=== PATIENT | male | born 1960 | race Caucasian/White ===

== ENCOUNTER 2020-03-29 09:09 | Outpatient (RCR) | payer MEDICAID ==
[~2020-03-29] VITALS: Ht 167 cm; Wt 50.0 kg
[~2020-03-29 09:09] MED LIST: AA/A14DR2 EACH EAR; AC325T PO; ALAVERT; ALB0.5V INH; ALBU0.8322 IH; ALVERT PO; ASP325T PO; ASPI-875 PO; ATOR10TA66 PO; BACL20TA PO; BUTA-273 PO; CEPH500C PO; CHLO500T2 PO; CLAR-19 PO; CYCL10TA9 PO; CYCL5TAB11 PO; DIPH25TA82 PO; DOXY100C2 PO; FISH OIL; FLUT16SP22 NSEACH; GABA100C PO; HYDR-4342 PO; LORA10TA44 PO; LORA10TA7 PO; LORA5TAB9 PO; MELO-195 PO; MELO15TA39 PO; METF-397 PO; MONT10TA26 PO; MTF500T PO; NAPR-243 PO; NAPR250T34 PO; OMEG1CAP51 PO; PRD20T PO; PRD50T PO; PROM25TA14 PO; RT-ALBUINH IH; SPIRIV; SPIRIVA; SULF1TAB38 PO; TIOT18CA IH; TIOT18CA2 IH
== END 2020-03-29 14:46 | disposition home or self-care (01) ==
LOC: PREOP 09:09
PROVIDERS: ATTEND Orthopaedic Surgery
DX: Z01.818 Encounter for other preprocedural examination (principal); Z11.59 Encounter for screening for other viral diseases; M70.22 Olecranon bursitis, left elbow
CPT/HCPCS: 87635

== ENCOUNTER 2020-04-03 10:10 | Day surgery (SDC) | payer MEDICAID, OTHER ==
--- NOTE | 2020-03-25 12:51 | HISTORY AND PHYSICAL ---
DATE OF SERVICE: ADMISSION HISTORY AND PHYSICAL DATE OF ADMISSION: 04/03/2020. This will be for surgery outpatient on 04/03/2020 for left elbow olecranon bursectomy and osteophyte excision. HISTORY OF PRESENT ILLNESS: The patient is a 59-year-old gentleman with complaints of left elbow pain and swelling. He has undergone aspiration of his olecranon bursa multiple times and it continues to recur. Despite conservative measures, the patient has elected to proceed with surgical excision. REVIEW OF SYSTEMS: No chest pain, no shortness of breath and no dysuria. PAST MEDICAL HISTORY: Asthma, COPD and diabetes type 2. PAST SURGICAL HISTORY: Cardiac catheterization, inguinal herniorrhaphy and left index finger. FAMILY HISTORY: Significant for cancer. PRIMARY CARE PROVIDER: Wolf ____. MEDICATIONS: Aspirin, baclofen, atorvastatin, Meloxicam, metformin, prednisone, ProAir, Spiriva and Symbicort. ALLERGIES: ONIONS and PENICILLIN. SOCIAL HISTORY: The patient smokes 2 packs per day. Denies alcohol use. RADIOGRAPHS: Reveal an olecranon osteophyte. PHYSICAL EXAMINATION: GENERAL: The patient is well developed, well-nourished and in no acute distress. HEENT: Normocephalic and atraumatic. Pupils are equal, round and reactive to light. Oropharynx is clear. NECK: Supple and no lymphadenopathy. LUNGS: Clear to auscultation bilaterally. HEART: Regular rate and rhythm. ABDOMEN: Soft, nontender and nondistended. EXTREMITIES: Left elbow demonstrates tenderness over his olecranon with associated swelling consistent with an olecranon bursitis. There is no erythema or warmth. This is mobile. He has symmetric elbow flexion, extension and pronation and supination of the forearm. IMPRESSION: Left olecranon bursitis unresponsive to conservative measures with associated osteophyte. PLAN: Left olecranon bursectomy with osteophyte excision. The risks, benefits, options, ramifications and recovery were discussed at length with the patient. He understands and wishes to proceed. Job ID: [id number] DocumentID: [id number] Dictated Date: 03/25/2020 10:39:34 Dextrine Mixer Date: 03/25/2020 12:51:02 Dictated By: HENRY LOPES MD
[2020-04-03] VITALS (10 sets, daily range): BP systolic 87–159; BP diastolic 57–83
[~2020-04-03] VITALS: Ht 167 cm; Wt 50.0 kg
[~2020-04-03 10:10] MED LIST changes: +HYDROcodone/APAP 7.5 MG/325 MG (LORTAB, LORCET PLUS) TABLET PO PRN
[2020-04-03] MEDS ORDERED: LACTATED RINGERS 1,000 ML IV PRN (10:20)
[2020-04-03] MEDS ORDERED: CLINDAMYCIN 600 MG/50 ML IVPB 50 ML IV ONE (10:30)
--- NOTE | 2020-04-03 11:11 | Progress Note-Pre Operative ---
Pre-Operative Progress Note H&P Reviewed The H&P was reviewed, patient examined and no changes noted. Date Seen by Provider: April 03, 2020 Time Seen by Provider: 11:11 Date H&P Reviewed: April 03, 2020 Time H&P Reviewed: 11:11 Pre-Operative Diagnosis: left olecranon bursitis HENRY LOPES MD April 03, 2020 11:11
--- NOTE | 2020-04-03 11:13 | Progress Note-Post Operative ---
Post-Operative Progess Note Surgeon (s)/Hand Stitcher (s) Surgeon HENRY LOPES MD Hand Stitcher: Tio Mcgill Pre-Operative Diagnosis left olecranon bursitis Post-Operative Diagnosis left olecranon bursitis Procedure & Operative Findings Date of Procedure 04/03/20 Procedure Performed/Findings left olecranon bursectomy and osteophyte excision Anesthesia Type GETA Estimated Blood Loss Estimated blood loss (mL): minimal Specimens/Packing Specimens Removed bursa Packing: none HENRY LOPES MD April 03, 2020 11:13
[2020-04-03] MEDS ORDERED: RT-ALBUTEROL SULF 2.5 MG/3 ML PRE-MIX VIAL INH ONE (11:15)
[2020-04-03] MEDS ORDERED: BUPIVACAINE 0.5% 30 ML (SENSORCAINE) VIAL ONE (11:18)
[2020-04-03] MEDS ORDERED: LIDOCAINE PF 2% 5 ML (XYLOCAINE) VIAL ONE (12:08)
[2020-04-03] MEDS ORDERED: proPOfol 200 MG/20 ML (DIPRIVAN) VIAL IV ONE (12:08)
[2020-04-03] MEDS ORDERED: ONDANSETRON 4 MG/2 ML (SDV) Z0FRAN ONE (12:08)
[2020-04-03] MEDS ORDERED: fentaNYL INJECTION 100 MCG/2 ML AMP ONE (12:09)
[2020-04-03] MEDS ORDERED: MIDAZOLAM 2 MG/2 ML (VERSED) VIAL ONE (12:09)
[2020-04-03] MEDS ORDERED: SEVOFLURANE (ULTANE) 15 ML INHAL SOLN ONE (13:31)
[2020-04-03] MEDS ORDERED: ONDANSETRON 4 MG/2 ML (SDV) Z0FRAN IVP PRN (14:00)
[2020-04-03] MEDS ORDERED: morphine INJ 10 MG/ML 1ML (SYR OR VIAL) IVP ONE (14:00)
[2020-04-03] MEDS ORDERED: MEPERIDINE (DEMEROL) INJ 50 MG/ML IVP ONE (14:00)
--- NOTE | 2020-04-03 14:06 | Anesthesia-General Post-Op ---
General Patient Condition Mental Status/LOC: Same as Preop Cardiovascular: Satisfactory Nausea/Vomiting: Absent Respiratory: Satisfactory Pain: Controlled Complications: Absent Post Op Complications Complications None Follow Up Care/Instructions Patient Instructions None needed. Anesthesia/Patient Condition Patient Condition Patient is doing well, no complaints, stable vital signs, no apparent adverse anesthesia problems. No complications reported per nursing. LOWELL CAMPOS CRNA April 03, 2020 14:06
[2020-04-03] MEDS ORDERED: HYDR-4342 PO (15:10)
--- NOTE | 2020-04-03 15:43 | NUR ---
HAS RESTED QUIETLY IN BED WITH NO COMPLAINTS OF PAIN THROUGHOUT RECOVERY PERIOD. CMS CHECKS WNL TO LEFT ARM/HAND. ELIA WRAPPED DRESSING REMAINS D/I TO LEFT ARM. HAS HAD LEFT ARM ELEVATED WITH ICE PACK ON. TAKING PO FLUIDS WELL, STATES HE IS READY FOR DISMISSAL.
--- NOTE | 2020-04-03 19:51 | OPERATIVE REPORT ---
DATE OF SERVICE: 04/03/2020 PREOPERATIVE DIAGNOSIS: Chronic left olecranon bursitis. POSTOPERATIVE DIAGNOSIS: Chronic left olecranon bursitis. PROCEDURE: 1. Left olecranon bursectomy. 2. Left olecranon osteophyte excision. SURGEON: Paulie Pimentel MD VACUUM SPINDLE SANDER: Tio Mcgill, who assisted throughout the procedure and closed the incision. ANESTHESIA: General endotracheal by Josafat Levin CRNA. TOURNIQUET TIME: 30 minutes at 250 mmHg. ESTIMATED BLOOD LOSS: Minimal. DRAINS: None. COMPLICATIONS: None. POSTOPERATIVE PLAN: Early range of motion. The patient was transferred to the recovery room awake and stable condition. STATEMENT OF MEDICAL NECESSITY: The patient is a 59-year-old gentleman with longstanding left posterior elbow pain and swelling. He had undergone aspiration multiple times, but the swelling recurred. Findings were consistent with olecranon bursitis and due to pain and failure to respond to conservative measures, the patient elected to proceed with surgical intervention. DESCRIPTION OF PROCEDURE: After risks and benefits of procedure were discussed and questions were answered and informed consent was signed and placed on chart, the operative site was confirmed in the preoperative holding area and initialed by the surgeon. The patient was then transferred to the operating room. After adequate levels of general endotracheal anesthetic were obtained, a timeout was called, confirming the operative site. Left upper extremity was prepped and draped in the usual sterile fashion with arm elevated, tourniquet inflated to 250 mmHg. A curvilinear incision was made over the mass and underlying soft tissues were carefully dissected after developing full thickness skin flaps. The bursa was identified and excised in total. No necrotic tissue was noted. The tourniquet was deflated for a total time of 13 minutes. Pressure was used for hemostasis as well as cautery. The wound was copiously irrigated, 3-0 Vicryl was used to reapproximate subcutaneous tissue and skin was closed with 4-0 nylon in vertical mattress interrupted fashion. A soft dressing was applied and the patient was transferred to the recovery room awake and in stable condition. Job ID: [id number] DocumentID: [id number] Dictated Date: 04/03/2020 13:31:17 Nursing Home Assistant Administrator Date: 04/03/2020 19:50:01 Dictated By: PAULIE PIMENTEL MD
== END 2020-04-03 15:43 | disposition home or self-care (01) ==
LOC: SDC 10:10
PROVIDERS: ATTEND Orthopaedic Surgery
DX: M70.22 Olecranon bursitis, left elbow (principal); M25.722 Osteophyte, left elbow; J44.9 Chronic obstructive pulmonary disease, unspecified; E11.9 Type 2 diabetes mellitus without complications; F17.210 Nicotine dependence, cigarettes, uncomplicated; Z79.82 Long term (current) use of aspirin; Z79.84 Long term (current) use of oral hypoglycemic drugs; Z79.899 Other long term (current) drug therapy; Z88.0 Allergy status to penicillin; Z91.018 Allergy to other foods; Z80.9 Family history of malignant neoplasm, unspecified
CPT/HCPCS: 82962; 87081; 94640

== ENCOUNTER → 2020-08-17 | Emergency (ER) | payer MEDICAID ==
[~2020-08-17] VITALS: Ht 170 cm; Wt 50.9 kg
[~2020-08-17] MED LIST changes: +FAMOTIDINE 20MG/2ML IV (PEPCID) IV STA; +HYDR-3817 PO; -HYDR-4342 PO; -HYDROcodone/APAP 7.5 MG/325 MG (LORTAB, LORCET PLUS) TABLET PO PRN; +LACTATED RINGERS 1,000 ML IV STA; +ONDANSETRON 4 MG/2 ML (SDV) Z0FRAN IVP ONE
--- NOTE | 2020-08-17 15:59 | ED General ---
General Stated Complaint: N/V Source of Information: Patient, EMS History of Present Illness Date Seen by Provider: Aug 17, 2020 Time Seen by Provider: 15:59 Initial Comments 60-year-old male brought in following a syncope event. Patient reports he ate a couple bags an old donuts. He then went to the restroom vomited multiple times. Then he walked out and had a brief syncope event. Patient denies any chest pain. He does have some mild epigastric pain. Denies any fevers chills. Allergies and Home Medications Allergies Coded Allergies: Penicillins (Verified Allergy, Severe, ANAPHYLAXIS, 03/28/20) Uncoded Allergies: onions (Allergy, Intermediate, swelling, 01/28/14) Home Medications Albuterol Sulfate 1 Puff Puff, 2 PUFF IH Q4H, (Reported) 1 PUFF = 90 MCG Atorvastatin Calcium 10 Mg Tablet, 10 MG PO HS, (Reported) Baclofen 20 Mg Tablet, 20 MG PO DAILY, (Reported) Butalbital/Aspirin/Caffeine 1 Each Tablet, 1 EACH PO QID PRN for HEADACHES, (Reported) Hydrocodone/Acetaminophen 1 Each Tablet, 1 EACH PO Q4H Prescribed by: ADRIANA HOLLOWAY on 04/03/20 1510 Loratadine 10 Mg Tablet, 10 MG PO DAILY, (Reported) Meloxicam 15 Mg Tablet, 15 MG PO DAILY, (Reported) Metformin HCl 500 Mg Tablet, 500 MG PO BID, (Reported) Montelukast Sodium 10 Mg Tablet, 10 MG PO DAILY, (Reported) Tiotropium [place] 1 Inh Aerp, 1 INH IH BID, (Reported) Patient Home Medication List Home Medication List Reviewed: Yes Review of Systems Review of Systems Constitutional: No chills, No fever EENTM: no symptoms reported Respiratory: cough (chronic with COPD); No orthopnea, No short of breath Cardiovascular: No chest pain, No palpitations Gastrointestinal: abdominal pain (epigastric); No diarrhea; nausea, vomiting Genitourinary: no symptoms reported Musculoskeletal: no symptoms reported Skin: no symptoms reported Psychiatric/Neurological: See HPI Past Rmiyqam-Origug-Vthcoc Hx Past Med/Social Hx: Reviewed Nursing Past Med/Soc Hx Patient Social History Type Used: Cigarettes 2nd Hand Smoke Exposure: Yes Recent Hopitalizations: No Immunizations Up To Date Tetanus Booster (TDap): Less than 5yrs Date of Pneumonia Vaccine: Aug 19, 2011 Date of Influenza Vaccine: Sep 19, 2013 Seasonal Allergies Seasonal Allergies: No Past Medical History Surgeries: Yes (HERNIA, 1ST FINGER L HAND AMPUTATION) Amputation Respiratory: Yes Asthma, Emphysema Currently Using CPAP: No Currently Using BIPAP: No Cardiac: Yes High Cholesterol Neurological: Yes (2000-STROKE) Headaches /Migraines, Stroke Reproductive Disorders: No Sexually Transmitted Disease: No HIV/AIDS: No Genitourinary: No Gastrointestinal: No Musculoskeletal: Yes (LEFT ELBOW BURSITIS/SWELLING) Arthritis, Fractures Endocrine: Yes Diabetes, Non-Insulin dep HEENT: No Loss of Vision: Denies Hearing Impairment: Denies Cancer: No Psychosocial: No Integumentary: No Blood Disorders: No Adverse Reaction/Blood Tranf: No (N/A) Family Medical History Alcoholism 09 BROTHER Cancer 03 MOTHER (BRAIN) 09 SISTER (BREAST CA) Family history: Alzheimer's disease 03 MOTHER Family history: Arthritis 09 BROTHER Family history: Hypertension 03 FATHER History of - respiratory disease 03 FATHER Human immunodeficiency virus (HIV) seropositivity 09 SISTER (AIDS) Psychotic disorder 09 BROTHER (BIPOLAR) No Family History of: Abdominal aortic aneurysm Big Stone's disease Aphasia Cancer of colon Cataract Chest pain Congenital heart disease Congestive heart failure Cystic fibrosis Dementia Dysphagia Family history: Allergy Family history: Asthma Family history: Breast disease Family history: Cardiovascular disease Family history: Coronary thrombosis Family history: Diabetes mellitus Family history: Gastrointestinal disease Family history: Glaucoma Family history: Osteoporosis Family history: Thyroid disorder Headache Hearing loss Heart disease Hereditary disease History of - anemia History of - disorder History of drug abuse Hypercholesterolemia Infertile Kidney disease Malignant neoplasm of lung Myocardial infarction Parkinson's disease Prostate cancer Seizure disorder Stroke Tuberculosis Visual impairment Physical Exam Vital Signs Vital Signs - First Documented 08/17/20 16:15 Temp 36.5 Pulse 85 Resp 24 B/P (MAP) 126/78 (94) Pulse Ox 96 O2 Delivery Room Air Capillary Refill : Height, Weight, BMI Height: 5'7.00" Weight: 128lbs. 2.0oz. 58.040577ko; 17.92 BMI Method:Stated General Appearance: No Apparent Distress, Thin Eyes: Bilateral Eye PERRL, Bilateral Eye EOMI Neck: Non Tender, Supple Respiratory: No Accessory Muscle Use, No Respiratory Distress, Decreased Breath Sounds (minimal diffuse) Cardiovascular: Regular Rate, Rhythm, No Edema Gastrointestinal: Non Tender, Soft Back: No CVA Tenderness, No Vertebral Tenderness Extremity: Normal Capillary Refill, Normal Range of Motion Neurologic/Psychiatric: Oriented x3, No Motor/Sensory Deficits, Normal Mood/Affect, bond manager II-XII Norm as Tested Focused Exam Lactate Level 08/17/20 15:59: Lactic Acid Level 0.94 Lactic Acid Level Laboratory Tests Test 08/17/20 15:59 Lactic Acid Level 0.94 MMOL/L (0.50-2.00) Progress/Results/Core Measures Suspected Sepsis SIRS Temperature: Pulse: Respiratory Rate: Laboratory Tests 08/17/20 15:59: White Blood Count 10.4 Blood Pressure / Mean: 08/17/20 15:59: Lactic Acid Level 0.94 Laboratory Tests 08/17/20 15:59: Creatinine 0.83, Platelet Count 299, Total Bilirubin 0.6 Results/Orders Lab Results Laboratory Tests Test 08/17/20 15:59 08/17/20 16:22 08/17/20 16:38 Range/Units White Blood Count 10.4 4.3-11.0 10^3/uL Red Blood Count 4.07 L 4.30-5.52 10^6/uL Hemoglobin 12.9 L 13.3-17.7 g/dL Hematocrit 38 L 40-54 % Mean Corpuscular Volume 93 80-99 fL Mean Corpuscular Hemoglobin 32 25-34 pg Mean Corpuscular Hemoglobin Concent 34 32-36 g/dL Red Cell Distribution Width 13.3 10.0-14.5 % Platelet Count 299 130-400 10^3/uL Mean Platelet Volume 9.7 9.0-12.2 fL Immature Granulocyte % (Auto) 0 % Neutrophils (%) (Auto) 86 H 42-75 % Lymphocytes (%) (Auto) 10 L 12-44 % Monocytes (%) (Auto) 3 0-12 % Eosinophils (%) (Auto) 0 0-10 % Basophils (%) (Auto) 1 0-10 % Neutrophils # (Auto) 8.9 H 1.8-7.8 10^3/uL Lymphocytes # (Auto) 1.1 1.0-4.0 10^3/uL Monocytes # (Auto) 0.3 0.0-1.0 10^3/uL Eosinophils # (Auto) 0.0 0.0-0.3 10^3/uL Basophils # (Auto) 0.1 0.0-0.1 10^3/uL Immature Granulocyte # (Auto) 0.0 0.0-0.1 10^3/uL Sodium Level 134 L 135-145 MMOL/L Potassium Level 4.4 3.6-5.0 MMOL/L Chloride Level 100 98-107 MMOL/L Carbon Dioxide Level 22 21-32 MMOL/L Anion Gap 12 5-14 MMOL/L Blood Urea Nitrogen 12 7-18 MG/DL Creatinine 0.83 0.60-1.30 MG/DL Estimat Glomerular Filtration Rate > 60 BUN/Creatinine Ratio 14 Glucose Level 167 H 70-105 MG/DL Lactic Acid Level 0.94 0.50-2.00 MMOL/L Calcium Level 8.4 L 8.5-10.1 MG/DL Corrected Calcium 8.6 8.5-10.1 MG/DL Total Bilirubin 0.6 0.1-1.0 MG/DL Aspartate Amino Transf (AST/SGOT) 16 5-34 U/L Alanine Aminotransferase (ALT/SGPT) 15 0-55 U/L Alkaline Phosphatase 53 40-136 U/L Troponin I < 0.028 <0.028 NG/ML B-Type Natriuretic Peptide 30.4 <100.0 PG/ML Total Protein 6.5 6.4-8.2 GM/DL Albumin 3.8 3.2-4.5 GM/DL Lipase 19 8-78 U/L Urine Color YELLOW Urine Clarity CLEAR Urine pH 7.0 5-9 Urine Specific [place] 1.015 L 1.016-1.022 Urine Protein NEGATIVE NEGATIVE Urine Glucose (UA) TRACE H NEGATIVE Urine Ketones 1+ H NEGATIVE Urine Nitrite NEGATIVE NEGATIVE Urine Bilirubin NEGATIVE NEGATIVE Urine Urobilinogen 0.2 < = 1.0 MG/DL Urine Leukocyte Esterase NEGATIVE NEGATIVE Urine RBC (Auto) NEGATIVE NEGATIVE Urine RBC NONE /HPF Urine WBC 5-10 H /HPF Urine Squamous Epithelial Cells 5-10 /HPF Urine Crystals NONE /LPF Urine Bacteria TRACE /HPF Urine Casts PRESENT /LPF Urine Hyaline Casts 0-2 H /LPF Urine Mucus NEGATIVE /LPF Urine Culture Indicated YES Glucometer 144 H 70-110 MG/DL My Orders Orders - GONZALEZ,CHIKI L DO Acute Abd Series (08/17/20 16:00) Accucheck Stat ONCE (08/17/20 16:00) Ed Iv/Invasive Line Start (08/17/20 16:00) Ekg Tracing (08/17/20 16:00) Monitor-Rhythm Ecg Trace Only (08/17/20 16:00) Ondansetron Injection (Zofran Injectio (08/17/20 16:00) Lactated Ringers (Lr 1000 Ml Iv Solution (08/17/20 16:00) Famotidine Injection (Pepcid Injection) (08/17/20 16:00) BNP (08/17/20 16:00) Cbc With Automated Diff (08/17/20 16:00) Comprehensive Metabolic Panel (08/17/20 16:00) Lactic Acid Analyzer (08/17/20 16:00) Lipase (08/17/20 16:00) Troponin I (08/17/20 16:00) Ua Culture If Indicated (08/17/20 16:00) Urine Culture (08/17/20 16:22) Medications Given in ED Current Medications Medications Dose Ordered Sig/Micheal Route Start Time Stop Time Status Last Admin Dose Admin Ondansetron HCl 4 mg ONCE ONCE IVP 08/17/20 16:00 08/17/20 16:02 DC 08/17/20 16:40 4 MG Vital Signs/I&O 08/17/20 16:15 Temp 36.5 Pulse 85 Resp 24 B/P (MAP) 126/78 (94) Pulse Ox 96 O2 Delivery Room Air Capillary Refill : Progress Note : Time: 17:03 Progress Note Patient reports he's feeling better after some fluids. He wants to go home. He wants no further evaluation is does not want to wait for any further results. Patient does appear to be much better. Patient is stable and will be discharged as he requests ECG Initial ECG Impression Date: Aug 17, 2020 Initial ECG Impression Time: 16:06 Initial ECG Rate: 83 Initial ECG Rhythm: Normal Sinus Initial ECG Impression: Nonspecific Changes Comment No acute findings Departure Impression Primary Impression: Vasovagal syncope Additional Impressions: Nausea & vomiting Qualified Codes: R11.2 - Nausea with vomiting, unspecified Food poisoning Disposition: 01 HOME, SELF-CARE Condition: Stable Departure-Patient Inst. Referrals: MARISOL BURRIS MD (PCP) Primary Care Physician JEFFERSON HAWK (Family) Primary Care Physician Patient Instructions: Food Poisoning, Nausea and Vomiting, Adult (DC), Vasovagal Response Add. Discharge Instructions: Follow-up with your primary care provider in the next 2-3 days for recheck of today's complaints CHIKI GONZALEZ DO Aug 17, 2020 15:59
[2020-08-17 16:14] LABS: BASOPHILS # (AUTO) 0.1 10^3/uL (0.0-0.1); BASOPHILS % (AUTO) 1 % (0-10); EOSINOPHILS % (AUTO) 0 % (0-10); HEMATOCRIT 38 % (40-54); HEMOGLOBIN 12.9 g/dL (13.3-17.7); LYMPHOCYTES # (AUTO) 1.1 10^3/uL (1.0-4.0); LYMPHOCYTES % (AUTO) 10 % (12-44); MEAN CORPUSCULAR HEMOGLOBIN 32 pg (25-34); MEAN CORPUSCULAR HGB CONC 34 g/dL (32-36); MEAN CORPUSCULAR VOLUME 93 fL (80-99); MEAN PLATELET VOLUME 9.7 fL (9.0-12.2); MONOCYTES # (AUTO) 0.3 10^3/uL (0.0-1.0); MONOCYTES % (AUTO) 3 % (0-12); NEUTROPHILS # (AUTO) 8.9 10^3/uL (1.8-7.8); NEUTROPHILS % (AUTO) 86 % (42-75); PLATELET COUNT 299 10^3/uL (130-400); WHITE BLOOD COUNT 10.4 10^3/uL (4.3-11.0)
[2020-08-17 16:21] LABS: ALBUMIN 3.8 GM/DL (3.2-4.5); CHLORIDE 100 MMOL/L (98-107); POTASSIUM 4.4 MMOL/L (3.6-5.0); SODIUM 134 MMOL/L (135-145)
[2020-08-17 16:22] LABS: CALCIUM 8.4 MG/DL (8.5-10.1)
[2020-08-17 16:23] LABS: GLUCOSE 167 MG/DL (70-105)
[2020-08-17 16:24] LABS: TOTAL PROTEIN 6.5 GM/DL (6.4-8.2)
[2020-08-17 16:25] LABS: BILIRUBIN,TOTAL 0.6 MG/DL (0.1-1.0); CARBON DIOXIDE 22 MMOL/L (21-32)
[2020-08-17 16:27] LABS: ALKALINE PHOSPHATASE 53 U/L (40-136); CREATININE SERUM 0.83 MG/DL (0.60-1.30); GFR ESTIMATED > 60
[2020-08-17 16:28] LABS: BUN/CREATININE RATIO 14
[2020-08-17 16:30] LABS: BILIRUBIN,URINE NEGATIVE (NEGATIVE); CLARITY,URINE CLEAR; COLOR,URINE YELLOW; GLUCOSE, URINE (UA) TRACE (NEGATIVE); KETONES,URINE 1+ (NEGATIVE); LEUKOCYTE ESTERASE ,URINE NEGATIVE (NEGATIVE); NITRITE,URINE NEGATIVE (NEGATIVE); PROTEIN,URINE NEGATIVE (NEGATIVE)
[2020-08-17 16:30] LABS: ALANINE AMINOTRANSFERASE 15 U/L (0-55); LIPASE 19 U/L (8-78)
[2020-08-17 16:52] LABS: BACTERIA,URINE TRACE /HPF
[2020-08-17 16:53] LABS: HYALINE CASTS, URINE 0-2 /LPF
[2020-08-17 17:16] VITALS: BP 143/81
== END ==
LOC: EDUNIT# 15:55 → ER 15:57
DX: R55 Syncope and collapse (principal); R11.2 Nausea with vomiting, unspecified; A05.9 Bacterial foodborne intoxication, unspecified; E11.9 Type 2 diabetes mellitus without complications; J45.909 Unspecified asthma, uncomplicated; E78.00 Pure hypercholesterolemia, unspecified; Z88.0 Allergy status to penicillin; Z77.22 Contact with and (suspected) exposure to environmental tobacco smoke (acute) (chronic); Z82.61 Family history of arthritis; Z82.49 Family history of ischemic heart disease and other diseases of the circulatory system; Z80.3 Family history of malignant neoplasm of breast; Z80.8 Family history of malignant neoplasm of other organs or systems; Z79.84 Long term (current) use of oral hypoglycemic drugs
CPT/HCPCS: 36415; 80053; 81000; 82962; 83605; 83690; 83880; 84484; 85025; 87088; 93041

== ENCOUNTER → 2020-10-22 | Outpatient (CLI) | payer MEDICAID ==
[~2020-10-22] MED LIST changes: -FAMOTIDINE 20MG/2ML IV (PEPCID) IV STA; -LACTATED RINGERS 1,000 ML IV STA; -MONT10TA26 PO; +MONT10TA97 PO; -ONDANSETRON 4 MG/2 ML (SDV) Z0FRAN IVP ONE; +RT-ALBUTEROL SULF 2.5 MG/3 ML PRE-MIX VIAL INH ONE
--- NOTE | 2020-10-22 12:51 | Diagnostic Imaging Report ---
CT Lung Screening INDICATION:56 pack-year smoking history TECHNIQUE: Noncontrast, low-dose CT imaging performed according to the lung cancer screening protocol. Auto Exposure Controls were utilize during the CT exam to meet ALARA standards for radiation dose reduction. COMPARISON:None FINDINGS:There are no prior CT studies for comparison. The plain film examination of the chest performed on 01/28/2014 failed to show any sign of an acute cardiopulmonary abnormality. On this exam there are 2 contiguous calcified small granulomas in the right upper lung. These have a generally benign appearance. There is no other parenchymal lung mass to suggest malignancy. There are mild emphysematous changes involving both lungs and there is scar formation of each formation apex. There is no sign of failure, pneumonia or pleural effusion to indicate an acute abnormality. The heart size is within normal limits. Coronary artery calcifications are noted. The aorta is not abnormally dilated. There is no obvious mediastinal or hilar adenopathy. The thyroid gland is partially obscured by streak artifact. The images through the upper abdomen failed to show any sign of an acute abnormality. The bone windows are unremarkable for a fracture or for destructive lesion. IMPRESSION: 1. There is no parenchymal lung mass to suggest malignancy. A followup low-dose lung cancer screening exam in one year would be recommended for continued evaluation. 2. There are emphysematous changes involving both lungs but there is no sign of an acute cardiopulmonary abnormality. 3. The heart size is within normal limits. Coronary calcifications are evident. LUNG-RADS CATEGORY:1 MODIFIER: OTHER SIGNIFICANT FINDINGS: Dictated by: Dictated on workstation # [id number]
== END ==
LOC: RT 10:30
PROVIDERS: ATTEND Nurse Practitioner Family
DX: J43.9 Emphysema, unspecified (principal); F17.200 Nicotine dependence, unspecified, uncomplicated
CPT/HCPCS: 94060; 94726; 94729

== ENCOUNTER 2021-02-10 12:47 | Outpatient (CLI) | payer MEDICAID ==
[~2021-02-10 12:47] MED LIST changes: +MONT10TA32 PO; -MONT10TA97 PO; -RT-ALBUTEROL SULF 2.5 MG/3 ML PRE-MIX VIAL INH ONE
== END 2021-02-10 13:30 | disposition home or self-care (01) ==
LOC: SLEEP 12:47
PROVIDERS: ATTEND Nurse Practitioner Family
DX: G47.10 Hypersomnia, unspecified (principal)
CPT/HCPCS: G0399

== ENCOUNTER → 2021-02-14 | Outpatient (CLI) | payer MEDICAID ==
[~2021-02-14] MED LIST changes: +GADOBUTROL 7.5 MMOL/7.5 ML (GADAVIST) VIAL IV ONE
== END ==
LOC: RAD 08:45
PROVIDERS: ATTEND Nurse Practitioner Family
DX: R41.82 Altered mental status, unspecified (principal); Z53.8 Procedure and treatment not carried out for other reasons

== ENCOUNTER → 2021-03-18 | Outpatient (CLI) | payer MEDICAID ==
[~2021-03-18] MED LIST changes: +CATHETER FLUSH 10 ML SYR IV PRN; -GADOBUTROL 7.5 MMOL/7.5 ML (GADAVIST) VIAL IV ONE; +HOLD METFORMIN - RECEIVED CONTRAST 20 ML VIAL IV SCH; +IOHEXOL 350 MG/ML 100 ML (OMNIPAQUE 350) VIAL IV ONE; +NS 100 ML (IVPB) BAG IV ONE
[2021-03-18 10:14] LABS: ALBUMIN 3.9 GM/DL (3.2-4.5)
[2021-03-18 10:15] LABS: CHLORIDE 100 MMOL/L (98-107); POTASSIUM 4.7 MMOL/L (3.6-5.0); SODIUM 136 MMOL/L (135-145)
[2021-03-18 10:16] LABS: CALCIUM 9.1 MG/DL (8.5-10.1)
[2021-03-18 10:17] LABS: GLUCOSE 128 MG/DL (70-105); TOTAL PROTEIN 7.2 GM/DL (6.4-8.2)
[2021-03-18 10:18] LABS: CARBON DIOXIDE 24 MMOL/L (21-32)
[2021-03-18 10:19] LABS: BILIRUBIN,TOTAL 0.6 MG/DL (0.1-1.0)
[2021-03-18 10:20] LABS: ALKALINE PHOSPHATASE 66 U/L (40-136)
[2021-03-18 10:21] LABS: CREATININE SERUM 0.89 MG/DL (0.60-1.30); GFR ESTIMATED > 60
[2021-03-18 10:22] LABS: BUN/CREATININE RATIO 12
[2021-03-18 10:23] LABS: ALANINE AMINOTRANSFERASE 14 U/L (0-55)
--- NOTE | 2021-03-18 11:23 | Diagnostic Imaging Report ---
PROCEDURE: CT head with and without contrast. TECHNIQUE: Multiple contiguous axial images were obtained through the brain before and after the administration of intravenous contrast. Auto Exposure Controls were utilized during the CT exam to meet ALARA standards for radiation dose reduction. INDICATION: Altered mental status. COMPARISON: MRI brain on 01/09/2014. FINDINGS: No large acute territorial ischemia, mass, or hemorrhage. No abnormal enhancement. No midline shift or mass effect. The ventricles, cortical sulci, and basilar cisterns are patent and unremarkable. The calvarium is intact. The visualized paranasal sinuses are clear. IMPRESSION: 1. No large acute territorial ischemia, mass, or hemorrhage. No abnormal enhancement. Dictated by: Dictated on workstation # [id number]
== END ==
LOC: RAD 09:54
PROVIDERS: ATTEND Nurse Practitioner Family
DX: R41.82 Altered mental status, unspecified (principal)
CPT/HCPCS: 36415; 70470; 80053

== ENCOUNTER 2021-05-26 21:14 | Emergency (ER) | payer MEDICAID ==
[~2021-05-26] VITALS: Ht 170 cm; Wt 50.9 kg
[~2021-05-26 21:14] MED LIST changes: -CATHETER FLUSH 10 ML SYR IV PRN; -HOLD METFORMIN - RECEIVED CONTRAST 20 ML VIAL IV SCH; -IOHEXOL 350 MG/ML 100 ML (OMNIPAQUE 350) VIAL IV ONE; -NS 100 ML (IVPB) BAG IV ONE
[2021-05-26 22:03] LABS: BASOPHILS % (AUTO) 0 % (0-10); EOSINOPHILS % (AUTO) 0 % (0-10); HEMATOCRIT 40 % (40-54); HEMOGLOBIN 13.7 g/dL (13.3-17.7); LYMPHOCYTES # (AUTO) 1.5 10^3/uL (1.0-4.0); LYMPHOCYTES % (AUTO) 12 % (12-44); MEAN CORPUSCULAR HEMOGLOBIN 31 pg (25-34); MEAN CORPUSCULAR HGB CONC 34 g/dL (32-36); MEAN CORPUSCULAR VOLUME 91 fL (80-99); MEAN PLATELET VOLUME 9.9 fL (9.0-12.2); MONOCYTES # (AUTO) 1.1 10^3/uL (0.0-1.0); MONOCYTES % (AUTO) 9 % (0-12); NEUTROPHILS # (AUTO) 9.5 10^3/uL (1.8-7.8); NEUTROPHILS % (AUTO) 78 % (42-75); PLATELET COUNT 215 10^3/uL (130-400); WHITE BLOOD COUNT 12.2 10^3/uL (4.3-11.0)
[2021-05-26 22:10] LABS: ALBUMIN 3.8 GM/DL (3.2-4.5); CHLORIDE 96 MMOL/L (98-107); POTASSIUM 4.2 MMOL/L (3.6-5.0); SODIUM 131 MMOL/L (135-145)
[2021-05-26 22:11] LABS: CALCIUM 8.7 MG/DL (8.5-10.1)
[2021-05-26 22:12] LABS: GLUCOSE 163 MG/DL (70-105)
[2021-05-26 22:13] LABS: TOTAL PROTEIN 7.1 GM/DL (6.4-8.2)
[2021-05-26 22:14] LABS: BILIRUBIN,TOTAL 0.5 MG/DL (0.1-1.0); CARBON DIOXIDE 24 MMOL/L (21-32)
[2021-05-26 22:16] LABS: ALKALINE PHOSPHATASE 60 U/L (40-136); CREATININE SERUM 0.95 MG/DL (0.60-1.30); GFR ESTIMATED > 60
[2021-05-26 22:17] LABS: BUN/CREATININE RATIO 12
[2021-05-26 22:19] LABS: ALANINE AMINOTRANSFERASE 15 U/L (0-55)
[2021-05-26] MEDS ORDERED: methylPREDNISolone 125 MG (Solu-MEDROL) VIAL IVP ONE (22:30)
[2021-05-26] MEDS ORDERED: RT-ALBUTEROL/IPRATROPIUM 3 ML (DUONEB) VIAL INH ONE (22:30)
[2021-05-26] MEDS ORDERED: AZITHROMYCIN INJECTION 500 MG in NS (IVPB) 250 ML IV ONE (23:45)
[2021-05-26] MEDS ORDERED: AZIT250T12 PO (23:56)
[2021-05-26] MEDS ORDERED: PRD20T PO (23:56)
--- NOTE | 2021-05-26 23:56 | ED General ---
General Chief Complaint: Respiratory Problems Stated Complaint: SOB Nursing Triage Note: PT PRESENTS TO THE ED C/O SOB THAT HAS BEEN GRADUALLY INCREASING OVER THE LAST FIVE DAYS. DENIES CP. VERBALIZES COUGH AND COPD HX. STATES HE HAS BEEN USING HIS INHALER PRESCRIBED. Source of Information: Patient Exam Limitations: No Limitations History of Present Illness Date Seen by Provider: May 26, 2021 Time Seen by Provider: 21:43 Initial Comments This 61-year-old gentleman with COPD presents to the emergency room with complaints of worsening shortness of breath and cough over the past few days. He does use inhalers and nebulizers at home but has continued to have worsening symptoms. He denies fever. He is a smoker. He has had episodes of hypoxia in the ER and does not use oxygen at home. He has no known Covid exposures. He has not been vaccinated. Allergies and Home Medications Allergies Coded Allergies: Penicillins (Verified Allergy, Severe, ANAPHYLAXIS, 03/28/20) Uncoded Allergies: onions (Allergy, Intermediate, swelling, 01/28/14) Home Medications Albuterol Sulfate 1 Puff Puff, 2 PUFF IH Q4H, (Reported) 1 PUFF = 90 MCG Atorvastatin Calcium 10 Mg Tablet, 10 MG PO HS, (Reported) Azithromycin 250 Mg Tablet, 250 MG PO DAILY Prescribed by: ROBBIE MCCANN on 05/26/212355 Baclofen 20 Mg Tablet, 20 MG PO DAILY, (Reported) Butalbital/Aspirin/Caffeine 1 Each Tablet, 1 EACH PO QID PRN for HEADACHES, (Reported) Hydrocodone/Acetaminophen 1 Each Tablet, 1 EACH PO Q4H Prescribed by: ADRIANA HOLLOWAY on 04/03/20 1510 Loratadine 10 Mg Tablet, 10 MG PO DAILY, (Reported) Meloxicam 15 Mg Tablet, 15 MG PO DAILY, (Reported) Metformin HCl 500 Mg Tablet, 500 MG PO BID, (Reported) Montelukast Sodium 10 Mg Tablet, 10 MG PO DAILY, (Reported) Prednisone 20 Mg Tab, 40 MG PO DAILY Prescribed by: ROBBIE MCCANN on 05/26/212355 Tiotropium [place] 1 Inh Aerp, 1 INH IH BID, (Reported) Patient Home Medication List Home Medication List Reviewed: Yes Review of Systems Review of Systems Constitutional: no symptoms reported EENTM: no symptoms reported Respiratory: see HPI Cardiovascular: no symptoms reported Gastrointestinal: no symptoms reported Genitourinary: no symptoms reported Musculoskeletal: no symptoms reported Skin: no symptoms reported Psychiatric/Neurological: No Symptoms Reported Hematologic/Lymphatic: No Symptoms Reported Past Mqcpjwj-Ahvapt-Totahl Hx Patient Social History Tobacco Use?: Yes Immunizations Up To Date Tetanus Booster (TDap): Less than 5yrs Seasonal Allergies Seasonal Allergies: No Past Medical History Surgeries: Yes (HERNIA, 1ST FINGER L HAND AMPUTATION) Amputation Respiratory: Yes Asthma, COPD, Emphysema Currently Using CPAP: No Currently Using BIPAP: No Cardiac: Yes High Cholesterol Neurological: Yes (2000-STROKE) Headaches /Migraines, Stroke Reproductive Disorders: No Sexually Transmitted Disease: No HIV/AIDS: No Genitourinary: No Gastrointestinal: No Musculoskeletal: Yes (LEFT ELBOW BURSITIS/SWELLING) Arthritis, Fractures Endocrine: Yes Diabetes, Non-Insulin dep HEENT: No Loss of Vision: Denies Hearing Impairment: Denies Cancer: No Psychosocial: No Integumentary: No Blood Disorders: No Adverse Reaction/Blood Tranf: No (N/A) Family Medical History Alcoholism 09 BROTHER Cancer 03 MOTHER (BRAIN) 09 SISTER (BREAST CA) Family history: Alzheimer's disease 03 MOTHER Family history: Arthritis 09 BROTHER Family history: Hypertension 03 FATHER History of - respiratory disease 03 FATHER Human immunodeficiency virus (HIV) seropositivity 09 SISTER (AIDS) Psychotic disorder 09 BROTHER (BIPOLAR) No Family History of: Abdominal aortic aneurysm Ocilla's disease Aphasia Cancer of colon Cataract Chest pain Congenital heart disease Congestive heart failure Cystic fibrosis Dementia Dysphagia Family history: Allergy Family history: Asthma Family history: Breast disease Family history: Cardiovascular disease Family history: Coronary thrombosis Family history: Diabetes mellitus Family history: Gastrointestinal disease Family history: Glaucoma Family history: Osteoporosis Family history: Thyroid disorder Headache Hearing loss Heart disease Hereditary disease History of - anemia History of - disorder History of drug abuse Hypercholesterolemia Infertile Kidney disease Malignant neoplasm of lung Myocardial infarction Parkinson's disease Prostate cancer Seizure disorder Stroke Tuberculosis Visual impairment Physical Exam Vital Signs Vital Signs - First Documented 05/26/21 21:32 Temp 37.7 Pulse 110 Resp 24 B/P (MAP) 137/83 (101) Pulse Ox 95 O2 Delivery Nasal Cannula O2 Flow Rate 3.00 Capillary Refill : Less Than 3 Seconds Height, Weight, BMI Height: 5'7.00" Weight: 128lbs. 2.0oz. 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 Norm as Tested Skin: Normal Color, Warm/Dry Progress/Results/Core Measures Suspected Sepsis SIRS Temperature: Pulse: 110 Respiratory Rate: 24 Laboratory Tests 05/26/21 21:45: White Blood Count 12.2H Blood Pressure 137 /83 Mean: 101 Laboratory Tests 05/26/21 21:45: Creatinine 0.95, Platelet Count 215, Total Bilirubin 0.5 Results/Orders Lab Results Laboratory Tests Test 05/26/21 21:45 Range/Units White Blood Count 12.2 H 4.3-11.0 10^3/uL Red Blood Count 4.38 4.30-5.52 10^6/uL Hemoglobin 13.7 13.3-17.7 g/dL Hematocrit 40 40-54 % Mean Corpuscular Volume 91 80-99 fL Mean Corpuscular Hemoglobin 31 25-34 pg Mean Corpuscular Hemoglobin Concent 34 32-36 g/dL Red Cell Distribution Width 13.2 10.0-14.5 % Platelet Count 215 130-400 10^3/uL Mean Platelet Volume 9.9 9.0-12.2 fL Immature Granulocyte % (Auto) 0 % Neutrophils (%) (Auto) 78 H 42-75 % Lymphocytes (%) (Auto) 12 12-44 % Monocytes (%) (Auto) 9 0-12 % Eosinophils (%) (Auto) 0 0-10 % Basophils (%) (Auto) 0 0-10 % Neutrophils # (Auto) 9.5 H 1.8-7.8 10^3/uL Lymphocytes # (Auto) 1.5 1.0-4.0 10^3/uL Monocytes # (Auto) 1.1 H 0.0-1.0 10^3/uL Eosinophils # (Auto) 0.0 0.0-0.3 10^3/uL Basophils # (Auto) 0.0 0.0-0.1 10^3/uL Immature Granulocyte # (Auto) 0.0 0.0-0.1 10^3/uL Sodium Level 131 L 135-145 MMOL/L Potassium Level 4.2 3.6-5.0 MMOL/L Chloride Level 96 L 98-107 MMOL/L Carbon Dioxide Level 24 21-32 MMOL/L Anion Gap 11 5-14 MMOL/L Blood Urea Nitrogen 11 7-18 MG/DL Creatinine 0.95 0.60-1.30 MG/DL Estimat Glomerular Filtration Rate > 60 BUN/Creatinine Ratio 12 Glucose Level 163 H 70-105 MG/DL Calcium Level 8.7 8.5-10.1 MG/DL Corrected Calcium 8.9 8.5-10.1 MG/DL Total Bilirubin 0.5 0.1-1.0 MG/DL Aspartate Amino Transf (AST/SGOT) 17 5-34 U/L Alanine Aminotransferase (ALT/SGPT) 15 0-55 U/L Alkaline Phosphatase 60 40-136 U/L C-Reactive Protein High Sensitivity 10.98 H 0.00-0.50 MG/DL Total Protein 7.1 6.4-8.2 GM/DL Albumin 3.8 3.2-4.5 GM/DL Procalcitonin 0.11 H <0.10 NG/ML Influenza Type A (RT-PCR) Not Detected Not Detecte Influenza Type B (RT-PCR) Not Detected Not Detecte SARS-CoV-2 RNA (RT-PCR) Not Detected Not Detecte My Orders Orders - ROBBIE OCHOA MD Covid 19 Inhouse Test (05/26/21 21:43) Influenza A And B By Pcr (05/26/21 21:43) Cbc With Automated Diff (05/26/21 21:49) Comprehensive Metabolic Panel (05/26/21 21:49) Procalcitonin (Pct) (05/26/21 21:49) Hs C Reactive Protein (05/26/21 21:49) Albuterol/Ipra Inhalation Soln (Duoneb I (05/26/21 22:30) Svn Small Volume Nebulizer (05/26/21 22:26) Methylprednisolone Sod Succ (Solu-Medrol (05/26/21 22:30) Chest Pa/Lat (2 View) (05/26/21 22:27) Azithromycin Injection (Zithromax Inject (05/26/21 23:45) Medications Given in ED Vital Signs/I&O 05/26/21 05/27/21 21:32 00:37 Temp 37.7 37.7 Pulse 110 110 Resp 24 24 B/P (MAP) 137/83 (101) 137/83 (101) Pulse Ox 95 95 O2 Delivery Nasal Cannula O2 Flow Rate 3.00 3.00 Capillary Refill : Less Than 3 Seconds Blood Pressure Mean: 101 Progress Note : Progress Note Influenza and Covid screening tests were negative. Patient was having episodes of hypoxia and was advised to be admitted. Treatment with DuoNeb and Solu- Medrol was administered. Patient then decided to leave AGAINST MEDICAL ADVICE. He did consent to a dose of a azithromycin before leaving. He did sign the AMA papers and prescriptions were provided. Diagnostic Imaging Diagonstic Imaging: Xray Plain Films/CT/US/NM/MRI: chest Comments NAME: CARLI FISCHER MED REC#: [id number] PT STATUS: DEP ER : 1960 PHYSICIAN: ROBBIE OCHOA MD ADMIT DATE: 05/26/21/ER Signed Date of Exam:05/26/21 CHEST PA/LAT (2 VIEW) HISTORY: Shortness of air, cough and congestion. COMPARISON: 01/28/2014 TECHNIQUE: 2 views of the chest. FINDINGS: Lung volumes are large. There is scarring in the lung apices. There is minimal opacity in the costophrenic angle of the right lung base. There is no pleural effusion or pneumothorax. The cardiac silhouette is normal in size. IMPRESSION: 1. Minimal opacity at the right lung base, may represent atelectasis/scarring or developing infiltrate. Dictated by: Dictated on workstation # [id number] Dict: 05/27/21 [id number] Trans: 05/27/21 [facility] [id number] Interpreted by: LACI AARON MD Electronically signed by: LACI AARON MD 05/27/21 1043 Departure Impression Primary Impression: COPD exacerbation Additional Impressions: Hypoxia Left against medical advice Disposition: AGAINST MEDICAL ADVICE Condition: Against Medical Advice Departure-Patient Inst. Decision time for Depature: 23:54 Referrals: MARISOL BURRIS MD (PCP/Family) Primary Care Physician Patient Instructions: COPD Exacerbation, Adult ED Add. Discharge Instructions: Admission to the hospital is recommended and you are leaving the hospital AGAINST MEDICAL ADVICE. Consequences of refusing admission may include worsening illness or possibly . Complete your antibiotics and steroids as prescribed. Return to the emergency room if symptoms worsen or you change your mind about admission to the hospital. Work toward quitting smoking as rapidly as possible. Follow-up with your primary care provider soon as possible. All discharge instructions reviewed with patient and/or family. Voiced understanding. Scripts Prednisone (Prednisone) 20 Mg Tab 40 MG PO DAILY, #6 TAB 0 Refills Prov: ROBBIE OCHOA MD 05/26/21 Azithromycin (Azithromycin) 250 Mg Tablet 250 MG PO DAILY, #4 TAB 0 Refills Prov: ROBBIE OCHOA MD 05/26/21 Copy Copies To 1: MARISOL BURRIS MD, JOSHUA T MD May 26, 2021 23:56
[2021-05-27 00:37] VITALS: BP 137/83
--- NOTE | 2021-05-27 07:57 | Diagnostic Imaging Report ---
HISTORY: Shortness of air, cough and congestion. COMPARISON: 01/28/2014 TECHNIQUE: 2 views of the chest. FINDINGS: Lung volumes are large. There is scarring in the lung apices. There is minimal opacity in the costophrenic angle of the right lung base. There is no pleural effusion or pneumothorax. The cardiac silhouette is normal in size. IMPRESSION: 1. Minimal opacity at the right lung base, may represent atelectasis/scarring or developing infiltrate. Dictated by: Dictated on workstation # [id number]
== END 2021-05-27 00:37 | disposition left against medical advice (07) ==
LOC: EDUNIT# 21:14 → ER 21:17
DX: J44.1 Chronic obstructive pulmonary disease with (acute) exacerbation (principal); R09.02 Hypoxemia; E78.00 Pure hypercholesterolemia, unspecified; E11.9 Type 2 diabetes mellitus without complications; Z20.822 Contact with and (suspected) exposure to COVID-19; Z86.73 Personal history of transient ischemic attack (TIA), and cerebral infarction without residual deficits; Z79.899 Other long term (current) drug therapy; Z79.84 Long term (current) use of oral hypoglycemic drugs
CPT/HCPCS: 36415; 71046; 80053; 84145; 85025; 86141; 87636

== ENCOUNTER 2022-07-31 12:55 | Outpatient (CLI) | payer MEDICARE, MEDICAID ==
[~2022-07-31] VITALS: Ht 170 cm; Wt 55.0 kg
[~2022-07-31 12:55] MED LIST changes: +AZIT250T12 PO; +MONT-40 PO; -MONT10TA32 PO
[2022-07-31 13:25] VITALS: BP 125/87
[2022-07-31 13:40] VITALS: BP 125/87
[2022-07-31] MEDS ORDERED: BEBTELOVIMAB 175 MG/2 ML VIAL IV ONE (13:45)
[2022-07-31 14:34] VITALS: BP 132/76
== END 2022-07-31 14:38 ==
LOC: INFUSION 12:55
PROVIDERS: ATTEND Nurse Practitioner Family
DX: U07.1 COVID-19 (principal)